=== PATIENT | male | born 1970 | race Caucasian/White ===

== ENCOUNTER 2022-04-02 10:20 | Emergency (ER) | payer OTHER, BC, SELFPAY ==
[2022-04-02 10:39] VITALS: BP 130/91; PULSE 84; RESP 16; TEMP 36.8; O2SAT 100
--- NOTE | 2022-04-02 11:18 | ED.SKABFB ---
HPI - Skin/Abscess/Foreign Bdy General Chief complaint: Skin/Abscess/Foreign Body Stated complaint: stitches removed on left index and thumb Source: patient Mode of arrival: ambulatory Limitations: no limitations History of Present Illness HPI narrative: 52-year-old male presents to [facility] for suture removal. Patient had 2 sutures placed to his left index finger and 5 sutures placed to his left arm 10 days ago at an emergency room in [place]. 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 Patient reports that his tetanus shot is up-to-date. Patient denies fever, redness, drainage, swelling or signs of infection. MD complaint: other (suture removal ) Onset (ago): day(s) () Tetanus up to date: yes Location: LUE (left index finger and left thumb ) Relieving factors: none Exacerbating factors: none Associated symptoms: denies other symptoms Related Data Home Medications Medication Instructions Recorded Confirmed No Home Medications 04/02/22 04/02/22 Allergies Allergy/AdvReac Type Severity Reaction Status Date / Time No Known Allergies Allergy Verified 04/02/22 11:12 Review of Systems Constitutional: Constitutional: Denies chills, Denies fatigue, Denies fever(s) and Denies weakness Respiratory: Respiratory: Denies cough, Denies dyspnea and Denies wheezing Gastrointestinal: Gastrointestinal: Denies diarrhea, Denies nausea and Denies vomiting Integumentary/Breasts: Comments: 5 sutures to left thumb and 2 sutures to left index finger Endocrine: Endocrine: Denies fatigue Allergic/Immunologic: Allergic/Immunologic: Denies throat swelling, Denies tongue swelling and Denies wheezing PMFSH Family History Family History Mother Family history of epilepsy Family history of malignant neoplasm Patient's mother is Father Family history of malignant neoplasm of gastrointestinal tract Carcinoma of colon Social History Social History Smoking status: Never smoker Alcohol intake: never Comments At time of signature, I agree with nursing past medical, surgical, social and family history. There is no relevant family history pertinent to the presenting complaint. Exam Const: General: healthy appearing Nutritional Appearance: well nourished Orientation/consciousness: patient oriented x3 Limitations: no limitations Neck: Neck: normal visual inspection Resp: Effort & Inspection: normal respiratory effort and not labored Auscultation: clear to auscultation bilaterally Cardio: Rate: regular rate Rhythm: regular rhythm Heart sounds: no murmurs Skin: General skin exam: normal color Rashes: no rashes Wounds: no wounds Other: 5 intact sutures noted to distal phalanx of left thumb into intact sutures noted to distal phalanx of left index finger. There is no swelling, erythema, drainage or signs of infection noted Neuro: General: patient oriented x3 Cranial nerves: Yes Nystagmus not present Speech: normal speech Psych: Mental Status: mental status grossly normal Affect: normal affect Attitude: cooperative Course Course Level of Care: Express Care Visit Vital Signs Vital signs: Vital Signs Temperature 36.8 C 04/02/22 10:39 Pulse Rate 84 04/02/22 10:39 Respiratory Rate 16 04/02/22 10:39 Blood Pressure 130/91 H 04/02/22 10:39 Pulse Oximetry 100 04/02/22 10:39 Temperature 36.8 C 04/02/22 10:39 Pulse Rate 84 04/02/22 10:39 Respiratory Rate 16 04/02/22 10:39 Blood Pressure 130/91 H 04/02/22 10:39 Pulse Oximetry 100 04/02/22 10:39 Procedures Other Procedure Procedure 1: Other Procedure: Suture removal -- 5 intact sutures removed from distal phalanx of left thumb and 2 intact sutures removed from distal phalanx of left index finger. Steri-Strips were then applied and secured with montez
== END 2022-04-02 10:25 | disposition home or self-care (01) ==
PROVIDERS: Emergency Provider Nurse Practitioner Family
DX: S61.211D Laceration without foreign body of left index finger without damage to nail, subsequent encounter (principal); S61.012D Laceration without foreign body of left thumb without damage to nail, subsequent encounter; W26.8XXD Contact with other sharp object(s), not elsewhere classified, subsequent encounter
CPT/HCPCS: 99202; G0463